=== PATIENT | female | born 1975 | race Caucasian/White ===

== ENCOUNTER → 2017-04-18 | Outpatient (CLI) | payer OTHER ==
[~2017-04-18] MED LIST: BACTRIM DS TAB1 EACH PO; BENTYL20 MG PO; CELEXA40 MG PO; CEPHALEXIN 500500 M3 PO; DEPAKOTE250 MG PO; DOXYCYCLINE 10100 MG PO; EFFEXOR 5050 MG/1 T1; FIORICET 50-301 EACH PO; FLOMAX0.4 MG PO; HYDROCODON-ACE1 EAC7 PO; HYDROCODONE-AP1 EAC6 PO; IBUPROFEN 800800 M1 PO; IMITREX100 MG; IMITREX100 MG PO; KEFLEX500 M1 PO; MULTIVITAMINS1 EAC7; MUSCLE RELAXERS; NAPROSYN500 MG PO; NORCO 5-325 TA1 EAC1 PO; NORCO 5-325 TA1 EACH PO; PERCOCET 5-3251 EACH PO; PHENERGAN 25 MG25 M1 PO; PREDNISONE 20 M20 M1 PO; PROMETHAZINE-C120 ML PO; PROMETHAZINE12.5 M1 PO; TRAMADOL 50 MG50 MG PO; VENTOLIN HFA 1818 GM INH; VERAPAMIL ER180 MG; VICODIN 5-3001 EACH PO; ZANTAC 150MG T150 MG PO; ZOFRAN ODT4 MG PO; ZOFRAN4 MG PO
== END ==
LOC: M.RAD 11:30
DX: M25.532 Pain in left wrist (principal); M25.521 Pain in right elbow

== ENCOUNTER 2017-06-13 09:11 | Emergency (ER) | payer OTHER ==
[~2017-06-13] VITALS: Ht 149.9 cm; Wt 90.7 kg
[~2017-06-13 09:11] MED LIST changes: -ZOFRAN4 MG PO
[2017-06-13 11:54] LABS: PROTIME 9.8 Seconds (9.20-11.50)
[2017-06-13 14:07] LABS: CSF CLARITY CLEAR; CSF COLOR COLORLESS; CSF RBC 3 /mm3; CSF WBC 1 /mm3 (0-10); VOLUME 12 ml
[2017-06-13] MEDS ORDERED: PERCOCET 5-3251 EACH PO (14:34)
[2017-06-13] MEDS ORDERED: ZOFRAN4 MG PO (14:34)
[2017-06-13 14:42] VITALS: BP 110/73
== END 2017-06-13 14:55 | disposition home or self-care (01) ==
LOC: M.ERS 09:11
PROVIDERS: Emergency Medicine
DX: G93.2 Benign intracranial hypertension (principal); F32.9 Major depressive disorder, single episode, unspecified; G43.909 Migraine, unspecified, not intractable, without status migrainosus; F17.210 Nicotine dependence, cigarettes, uncomplicated; Z90.49 Acquired absence of other specified parts of digestive tract; Z90.710 Acquired absence of both cervix and uterus

== ENCOUNTER 2018-05-17 07:21 | Emergency (ER) | payer OTHER ==
[~2018-05-17] VITALS: Ht 149.9 cm; Wt 91.6 kg
[~2018-05-17 07:21] MED LIST changes: +ZOFRAN4 MG PO
[2018-05-17] MEDS ORDERED: [UNRECOGNIZED DRUG - REMARK] VAG (07:40)
[2018-05-17] MEDS ORDERED: ESTRADIOL1 EACH TRANSDERM (07:41)
[2018-05-17 08:32] LABS: ABSOLUTE BASOPHILS 0.1 thou/uL (0.0-0.2); ABSOLUTE LYMPHOCYTES 1.5 thou/uL (0.8-5.3); ABSOLUTE MONOCYTES 0.6 thou/uL (0.0-1.2); ABSOLUTE NEUTROPHILS 9.3 thou/uL (1.6-8.1); BASOPHILS 0.4 %; EOSINOPHILS 0.1 %; HEMATOCRIT 44.4 % (37.0-47.0); HEMOGLOBIN 15.5 gm/dL (12.0-15.0); LYMPHOCYTES 13.3 %; MCH 30.5 pg (26.0-34.0); MCHC 34.9 g/dL (28.0-37.0); MCV 87.3 fL (80.0-100.0); MONOCYTES 5.2 %; MPV 8.7 fl. (7.2-11.1); NUCLEATED RBCS 0 /100WBC; PLATELET COUNT* 291 thou/uL (150-400); RBC 5.09 mil/uL (4.20-5.00); RDW-CV 13.8 % (10.5-14.5); WBC 11.5 thou/uL (4.0-11.0)
[2018-05-17 08:34] LABS: URINE BILIRUBIN NEGATIVE (Negative); URINE BLOOD TRACE (Negative); URINE CLARITY CLEAR; URINE COLOR YELLOW; URINE GLUCOSE-RANDOM NEGATIVE (Negative); URINE KETONES NEGATIVE (Negative); URINE NITRITE-REFLEX NEGATIVE (Negative); URINE PROTEIN NEGATIVE (Negative); URINE UROBILINOGEN 0.2 E.U./dl (0.2-1.0)
[2018-05-17 08:37] LABS: URINE LEUKOCYTES-REFLEX 2+ (Negative)
[2018-05-17 08:41] LABS: ALBUMIN 3.3 g/dL (3.4-5.0); CALCIUM 8.7 mg/dL (8.5-10.1); CREATININE 1.1 mg/dL (0.6-1.3); POTASSIUM 4.1 mmol/L (3.5-5.1); TOTAL BILIRUBIN 0.3 mg/dL (<0.1-1.0); TOTAL PROTEIN 7.2 g/dL (6.4-8.2)
[2018-05-17 08:52] LABS: BACTERIA-REFLEX None Seen /HPF (None Seen); CASTS None Seen /LPF (None Seen); CRYSTALS None Seen /LPF (None Seen); MUCUS 0-3 Light strn/LPF (None Seen); SQUAMOUS 0-3 Few /LPF (0-3); URINE RBC None Seen /HPF (0-2); URINE WBC-REFLEX 6-15 Few /HPF (0-5)
[2018-05-17] MEDS ORDERED: NORCO 5-325 TA1 EACH PO (09:29)
[2018-05-17] MEDS ORDERED: ZOFRAN ODT4 MG PO (09:29)
[2018-05-17] MEDS ORDERED: CIPROFLOXACIN500 M1 PO (09:29)
[2018-05-17] MEDS ORDERED: FLAGYL500 M1 PO (09:29)
[2018-05-17 11:19] VITALS: BP 118/61
== END 2018-05-17 11:20 | disposition home or self-care (01) ==
LOC: M.ERS 07:21
PROVIDERS: Personal Emergency Response Attendant
DX: K57.32 Diverticulitis of large intestine without perforation or abscess without bleeding (principal); G43.909 Migraine, unspecified, not intractable, without status migrainosus; F32.9 Major depressive disorder, single episode, unspecified; F17.210 Nicotine dependence, cigarettes, uncomplicated; Z90.710 Acquired absence of both cervix and uterus; Z90.49 Acquired absence of other specified parts of digestive tract; Z88.8 Allergy status to other drugs, medicaments and biological substances